=== PATIENT | male | born 1945 | race Caucasian/White ===

== ENCOUNTER → 2017-12-03 | Outpatient (CLI) | payer OTHER ==
[~2017-12-03] MED LIST: ADVIL,NUPRIN,M200 MG PO; ALEVE220 MG PO; AMLODIPINE BESYL5 MG PO; ATORVASTATIN CA10 MG PO; CEFTIN500 MG PO; COUMADIN2.5 MG PO; FERROUS SULFAT325 MG PO; FLONASE16 G1 BOTH NARES; KEFLEX500 MG PO; MULTIVITAMIN1 EAC2 PO; PERCOCET 5/31 TABLET PO; PERI-COLACE TA1 EACH PO; VISTARIL25 MG PO
== END | disposition home or self-care (01) ==
LOC: NUC 10:51
DX: M41.85 Other forms of scoliosis, thoracolumbar region (principal); M19.072 Primary osteoarthritis, left ankle and foot; M19.071 Primary osteoarthritis, right ankle and foot; Z96.641 Presence of right artificial hip joint
CPT/HCPCS: 78315; A9503